=== PATIENT | female | born 1965 | race Caucasian/White ===

== ENCOUNTER → 2018-09-01 10:16 | Outpatient (CLI) | payer BC, SELFPAY ==
--- NOTE | 2018-09-01 10:24 | MM_ITS ---
MM Dig screening mamm BI w/CAD CAD Screening COMPARISON: Digital mammograms with CAD from [place], [place] 10/27/2015 and 04/25/2017 INDICATION: There has been a previous biopsy left breast for benign disease. TECHNIQUE: Standard CC and MLO images were obtained. R2 CAD reviewed. FINDINGS: Prominent diffuse somewhat heterogenic fibroglandular densities are seen throughout both breasts. There is a smoothly marginated benign-appearing nodular density deep within the right breast at approximately the 3 to 4:00 position. There is no suspicious lesion and there are no suspicious microcalcifications. IMPRESSION: Moderately dense parenchyma pattern with no suspicious lesion seen BI-RADS Category: 2 Benign Finding(s) RECOMMENDED FOLLOW-UP: 1YR - 1 YEAR FOLLOW-UP (A letter has been sent to the patient regarding results of the study.)
== END ==
PROVIDERS: PCP Family Medicine; Visit Provider Family Medicine
DX: Z12.31 Encounter for screening mammogram for malignant neoplasm of breast (principal); N60.19 Diffuse cystic mastopathy of unspecified breast
CPT/HCPCS: 77067

== ENCOUNTER → 2019-01-02 07:12 | Outpatient (CLI) | payer OTHER, SELFPAY ==
[2019-01-02 09:05] LABS: Free T4 (Free Thyroxine) 1.28 ng/dl (0.76-1.46)
== END ==
PROVIDERS: Visit Provider Family Medicine
DX: Z00.00 Encounter for general adult medical examination without abnormal findings (principal); E03.9 Hypothyroidism, unspecified
CPT/HCPCS: 36415; 84439

== ENCOUNTER → 2020-10-28 15:47 | Outpatient (CLI) | payer OTHER, SELFPAY ==
--- NOTE | 2020-10-28 15:50 | MM_ITS ---
PROCEDURE: MM DIG SCREENING MAMM BI W/CAD Digital Breast Tomosynthesis Included CLINICAL INDICATION: SCREENING There is no personal or family history of breast cancer. There has been a previous biopsy left breast for benign disease. . COMPARISON: MG DIG MAMMO BILAT SCREENING from 12/09/2010 MG MA MAMMO SCRN DIGITL BILAT from 01/14/2012 MG [facility] MM Dig screening mamm BI w/CAD from 09/01/2018 TECHNIQUE: Standard CC and MLO images and 3D Tomosynthesis was obtained. R2 CAD reviewed. FINDINGS: Moderate diffuse somewhat heterogenic fibroglandular densities are seen in the central portions of both breasts. There is a stable nodular density deep within the right breast inner quadrant which a notch like border in this likely is an intramammary node. There is no suspicious lesion and no suspicious microcalcifications. IMPRESSION: Moderate breast density with no suspicious lesions seen BI-RAD Category: 2 Benign Finding(s) FOLLOW-UP: 1YR 1 Year Follow-up (A letter has been sent to the patient regarding results of the study.) Dictated by: Dr. Matt Lawton MD 10/30/2020 09:31 Dr. Matt Lawton MD in [place] 10/30/2020 09:31
== END ==
PROVIDERS: PCP Family Medicine; Visit Provider Family Medicine
DX: Z12.31 Encounter for screening mammogram for malignant neoplasm of breast (principal); Z92.89 Personal history of other medical treatment
CPT/HCPCS: 77063; 77067

== ENCOUNTER 2021-06-03 09:00 | Emergency (ER) | payer OTHER, SELFPAY ==
[2021-06-03 09:05] VITALS: BP 136/91; PULSE 89; RESP 19; TEMP 37.1; O2SAT 100; BMI 24.0
--- NOTE | 2021-06-03 09:33 | HMH.EDUTC ---
[facility] [place] Clinical Impression: Sinusitis Qualifiers: Sinusitis location: unspecified location Chronicity: unspecified Qualified Code(s): J32.9 - Chronic sinusitis, unspecified Disposition: Home, Self-Care Condition on Discharge: Good Instructions: Sinusitis, DI for Sinusitis, Azithromycin Additional Instructions: *Monitor Temp, Over the counter Motrin or Tylenol as directed/as needed Tylenol every 4 hours and Motrin every 6 hours (as long as your family doctor has told you that you can take it) for fever or pain. and straight to ER if unable to lower temp less than 101.0 after medication given *Warm salt water gargles may help to soothe the throat *Throat Lozenges *Warm fluids like tea with honey may help to soothe the throat *Sleep elevated *Humidifier/Vaporizer Follow up IMMEDIATELY for new or worsening symptoms or no Noticeable improvement over the next 48-72 hours. 911 for difficulty breathing or swallowing You were tested for today for COVID19 your test result should be back in the next 24-48 hours, you was given a handout on how to log onto the [facility] Portal to see your COVID test results if you have issues logging on or cannot get your results you may call the [facility] You was given a handout with instructions for Self Quarantine and Self isolation for while you wait on test results and what to do if they are positive If you are positive the Health Dept will be contacting you also Make sure to take your Vitamins Vit. C Vit D and Zinc if you can take them Prescriptions: methylPREDNISolone [Medrol 4mg tab] 4 mg PO DIRECTED #21 tab Transmission Status: Pending to [facility] Benzonatate [Tessalon Perle 100mg Cap*] 100 mg PO TID PRN #30 cap PRN Reason: Cough Transmission Status: Pending to [email or web address] Azithromycin [Z-Blas 250mg Tab] 250 mg PO DIRECTED #6 tab Transmission Status: Pending to [facility] Referrals: Obdulia Sun [Primary Care Provider] - As needed Time of Disposition: 09:41 Medical Decision Making - Dwight Inquiry Pt receiving controlled substance: No Dwight was queried for this patient: No Vital Signs: 06/03/21 09:05 Temperature 98.8 F Temperature Source Oral Pulse Rate [Left Brachial] 89 Respiratory Rate 19 Blood Pressure [Left Arm] 136/91 H Blood Pressure Mean [Left Arm] 106 Blood Pressure Source [Left Arm] Automatic Cuff Blood Pressure Position [Left Arm] Sitting 02 Sat by Pulse Oximetry 100 Oxygen Delivery Method Room Air Orders (Tests/Meds): ORDERS Category Date Time Status Covid-19 Nasal PCR ([facility]) Routine Lab 06/03/21 09:30 Received [facility] HPI - General Stated complaint: sinus pressure, cough Time Seen by Provider: 06/03/21 09:33 Mode of Arrival: Ambulatory Source of Information: Patient Limitations: No Limitations Description of Symptoms (Recalled from Triage Doc. by RN): PATIENT C/O COUGH, HEADACHE, AND CONGESTION X 1 WEEK HEENT Symptoms (Recalled from RN notes): Yes Resp Symptoms (Recalled from RN notes): Yes Skin Symptoms (Recalled from RN notes): No MS Symptoms (Recalled from RN notes): No Functional Status (Recalled from RN notes): WNL - History of Present Illness Provider Complaint: Patient states that she has been having sinus pain and pressure along with cough and drainage in the back of her throat States that it has continued to get worse over the last week and today she was feeling worse States that she gets sinusitis and bronchitis about this time every year so she came in to get checked out - Related Data Home Medications Medication Instructions Recorded Confirmed levothyroxine 100 mcg tablet PO 09/09/19 09/09/19 Previous Rx's Medication Instructions Recorded uuxryeyfrmjdecm-krdgbblxkejspid-QE 10 ml PO Q4-6H PRN 7 Days #118 ml 09/09/19 2 mg-30 mg-10 mg/5 mL oral syrup Azithromycin [Z-Blas 250mg Tab] 250 mg PO DIRECTED #6 tab 06/03/21 Benzonatate [Tessalon Perle 100mg 100 mg PO
[2021-06-03 09:39] VITALS: BP 136/91; PULSE 89; RESP 19; TEMP 37.1; O2SAT 100
== END 2021-06-03 09:47 | disposition home or self-care (01) ==
PROVIDERS: Emergency Provider Nurse Practitioner; PCP Family Medicine
DX: U07.1 COVID-19 (principal); J32.9 Chronic sinusitis, unspecified
CPT/HCPCS: 99202; C9803; G0463; U0003; U0005

== ENCOUNTER → 2022-07-16 10:50 | Outpatient (CLI) | payer BC, SELFPAY ==
--- NOTE | 2022-07-16 10:54 | MM_ITS ---
PROCEDURE INFORMATION: Exam: MG Bilateral Screening 3D Mammography Exam date and time: 07/16/2022 10:51 AM Age: 57 years old Clinical indication: Screening mammogram. TECHNIQUE: Imaging protocol: Bilateral Screening tomosynthesis and 2D mammography including computer-aided detection (CAD) when performed. COMPARISON: 1. MG MM DIG SCREENING MAMM BI W/CAD 10/28/2020 3:52 PM 2. MG [facility] MM Dig screening mamm BI w/CAD 09/01/2018 10:41 AM 3. MG MA MAMMO SCRN DIGITL BILAT 01/14/2012 3:09 PM FINDINGS: MAMMOGRAPHY: Breast composition: The breast is heterogeneously dense, which may obscure small masses. Mass: None. Architectural distortion: No new or suspicious architectural distortion. Calcifications: No new or suspicious calcifications are present Asymmetric density: No new or suspicious asymmetric density is present Skin thickening: None. Axillary adenopathy: None. IMPRESSION: No mammographic evidence of malignancy. Recommend annual screening mammography unless otherwise clinically indicated. ASSESSMENT: BI-RADS category 1: Negative
== END ==
PROVIDERS: PCP Family Medicine; Visit Provider Family Medicine
DX: Z12.31 Encounter for screening mammogram for malignant neoplasm of breast (principal)
CPT/HCPCS: 77063; 77067

== ENCOUNTER 2024-03-20 18:02 | Emergency (ER) | payer OTHER, SELFPAY ==
[2024-03-20 18:10] VITALS: BP 156/100; PULSE 70; RESP 17; TEMP 36.8; O2SAT 97; BMI 27.6
--- NOTE | 2024-03-20 18:12 | ED_ITS ---
Discharge Plan Disposition Patient Disposition: Home, Self-Care Condition: Good Prescriptions Prescriptions: New hydroxyzine pamoate [Vistaril] 25 mg capsule 25 mg PO Q6H PRN (Reason: itching) Qty: 30 0RF methylprednisolone 4 mg Tablets,Dose Pack 4 mg PO DIRECTED 6 Days Qty: 21 0RF Rx Instructions: Take 1 pack as directed for 6 days No Action levothyroxine 100 mcg tablet 100 mcg PO DAILY Patient Comments: TAKE 1 TABLET BY MOUTH ONCE DAILY Referrals Follow up/Referrals: Avi Persaud MD [Primary Care Provider] - See instructions Activity Restrictions/Add. Instructions Additional Instructions/Restrictions: Try to identify and avoid contact with the offending substance. Don't start the oral steroids until tomorrow. The hydroxyzine (vistaril) will make you drowsy, so don't drive or operate heavy machinery after taking it. Don't take the vistaril with benedryl. These are similar medications and they will make you too drowsy together. Follow up with your regular doctor. GO TO THE ER FOR ANY WORSENING SYMPTOMS OR CONCERNS Clinical Impressions Clinical Impression: Allergic reaction Instructions Patient Instructions: DI for General Allergic Reactions, Methylprednisolone, Hydroxyzine, Methylprednisolone Injection Discharge ED Provider: Basil Solis [facility] General Stated complaint: rash Time Seen by Provider: 03/20/24 18:12 History of Present Illness Provider Complaint: She states that since earlier today she has had a rash on her body and extreme itching. She denies exposure to any known allergens. She denies any chest tightness, mouth swelling and throat swelling. Related Data Home Medications Medication Instructions Recorded Confirmed levothyroxine 100 mcg tablet 100 mcg PO DAILY 09/09/19 03/20/24 Previous Rx's Medication Instructions Recorded hydroxyzine pamoate 25 mg capsule 25 mg PO Q6H PRN itching #30 caps 03/20/24 (Vistaril) methylprednisolone 4 mg tablets in 4 mg PO DIRECTED 6 days #21 tabs 03/20/24 a dose pack Allergies Allergy/AdvReac Type Severity Reaction Status Date / Time No Known Allergies Allergy Verified 09/09/19 11:28 [facility] Disclaimer: The information contained in this section may have been updated after the p atient was seen, as this information can be updated by other users. Medical History (Updated 03/20/24 @ 18:38 by Basil Solis APRN) Thyroid disease Social History Smoking Status: Never smoker alcohol intake: never current occupational status: other Travel in the last 8 weeks: None ROS Obtained: Yes All systems reviewed & no additional complaints except as documented Constitutional Constitutional: Denies chills and Denies fever(s) Eyes Eyes: Denies eye discharge ENT Ears, Nose, Mouth, and Throat: Denies dizziness, Denies otalgia and Denies sore throat Cardiovascular Cardiovascular: Denies chest pain Respiratory Respiratory: Denies shortness of breath, Denies chest congestion, Denies cough, Denies stridor and Denies wheezing Gastrointestinal Gastrointestingal: Denies nausea or vomiting Musculoskeletal Musculoskeletal: Reports system reviewed and no additional complaints, except as documented and Denies arthralgias Integumentary/Breasts Skin/Breast: Reports as per HPI and Reports rash Neurologic Neurologic: Denies dizziness and Denies paresthesias Allergic/Immunologic Allergic/Immunologic: Denies wheezing Physical Exam General General appearance: alert and in no apparent distress Head Head exam: atraumatic, normocephalic and normal inspection Eye Eye exam: Present normal appearance, PERRL and EOMI ENT ENT exam: Present normal exam, normal oropharynx, mucous membranes moist, TM's normal bilaterally and normal external ear exam Neck Neck exam: Present normal inspection, full ROM and trachea midline; Absent meningismus or lymphadenopathy Chest Chest inspection: Present normal inspection and symmetric chest wall rise; Absent tenderness Respiratory Respiratory exam: Present normal lung sounds bilaterally; Absent respiratory distress Cardiovascular Cardiovascular exam: Present regular rate and normal rhythm; Absent JVD Abdominal Exam Abdominal exam: Present soft and normal bowel sounds; Absent distention, tenderness or guarding Extremities Exam Extremities exam: Present normal inspection, full ROM and normal capillary refill; Absent calf tenderness Back Exam Back exam: Present normal inspection; Absent tenderness Neurological Exam Neurological exam: Present alert and oriented X3 Psychiatric Psychiatric exam: Present normal affect and normal mood Skin Skin exam: Present rash Lymphatic Lymphatic Findings: no adenopathy Medical Decision Making Medical Records Medical records reviewed: No I reviewed the patient's medical records. Dwight Inquiry Pt receiving controlled substance: No
[2024-03-20] MEDS: METHYLPREDNISOLONE SOD SUCC 125MG VIAL 125 MG IM (18:35)
[2024-03-20 18:39] VITALS: BP 156/100; PULSE 70; RESP 17; TEMP 36.8; O2SAT 97
== END 2024-03-20 18:46 | disposition home or self-care (01) ==
PROVIDERS: Emergency Provider Nurse Practitioner Family; PCP Family Medicine
DX: T78.40XA Allergy, unspecified, initial encounter (principal)
CPT/HCPCS: 96372; 99212; 99214; G0463; J2919

== ENCOUNTER 2024-10-26 12:09 | Outpatient (CLI) | payer OTHER, SELFPAY ==
[2024-10-26 13:55] LABS: Alanine Aminotransferase 26 U/L (12-78); Albumin Level 4.6 g/dl (3.5-5.0); Albumin/Globulin Ratio 2.1 (1.1-1.8); Alkaline Phosphatase 67 U/L (38-126); Aspartate Amino Transferase 34 U/L (14-36); Blood Urea Nitrogen 15 mg/dl (7-17); Calcium 9.7 mg/dl (8.4-10.2); Carbon Dioxide 28 mmol/L (22.0-30.0); Chloride 103 mmol/L (98-107); Chol/HDL Ratio 2.3 (1-3.5); Cholesterol 191 mg/dl (140-200); Estimated Glomerular Filt Rate 86 ml/min (>60); GFR (African American) 104 ML/MIN (>60); Globulin 2.2 g/dL (1.3-3.2); Glucose 83 mg/dl (74-100); HDL Cholesterol 82 mg/dl (40-60); Sodium 135 mmol/L (136-145); Total Protein,Serum 6.8 g/dl (6.3-8.2); Triglycerides 112 mg/dl (30-150); VLDL Cholesterol 22 mg/dL (0-40)
[2024-10-26 13:57] LABS: Bilirubin,Total 0.1 mg/dl (0.2-1.3)
[2024-10-26 14:12] LABS: Free T4 (Free Thyroxine) 1.17 ng/dl (0.78-2.19)
[2024-10-26 14:29] LABS: Thyroid Stimulating Hormone 0.03 uIU/mL (0.465-4.68)
[2024-11-02 02:30] LABS: F026-IgE Pork 0.84 kU/L (Class II); F027-IgE Beef 1.94 kU/L (Class III); F088-IgE Lamb 0.37 kU/L (Class I); Immunoglobulin E, Total 22 IU/mL (6-495); O215-IgE Alpha-Gal 4.13 kU/L (Class IV)
== END 2024-10-26 23:59 | disposition home or self-care (01) ==
PROVIDERS: PCP Family Medicine; Visit Provider Family Medicine
DX: E03.9 Hypothyroidism, unspecified (principal); Z91.018 Allergy to other foods
CPT/HCPCS: 36415; 80053; 80061; 82785; 84439; 84443; 86003; 86008

== ENCOUNTER 2025-03-28 15:49 | Outpatient (CLI) | payer OTHER, SELFPAY ==
--- OUTSIDE RECORDS SUMMARY | 2025-03-28 15:52 | XMS_ITS | Encounter Summary ---
Author Organization Healthcare Address [address] [id number] Care Team Providers Care Hairspring Ii Inspector Name Role Phone Obdulia Sun MD Primary Care Provider [phone] Reason for Visit * Reason Comments Med Refill Encounter Details Date Type Department Care Team (Late st Contact Info) Description 05/28/2022 Refill [facility] [address] [place] [address] Obdulia Sun MD [address] [place] [address] Social History Tobacco Use Types Packs/Day Years Used Date Smoking Tobacco: Never Smokeless Tobacco: Never Alcohol Use Standard Drinks/Week Comments Yes 0 (1 standard drink = 0.6 oz pur e alcohol) PHQ-2 Answer Date Recorded Patient Health Questionnaire-2 Score 0 05/01/2021 Comments Unknown Sex and Gender Information Value Date Recorded Sex Assigned at Not on file Legal Sex Female 7:41 PM EDT Gender Identity Not on file Sexual Orientation Not on file documented as of this encounter Plan of Treatment Not on file documented as of this encounter Visit Diagnoses Not on filedocumented in this encounter Care Teams Hairspring Ii Inspector Relationship Specialty Start Date End Date Obdulia Sun MD [address] [place] [address] PCP - General 01/09/21 06/19/24 documented as of this encounter
--- OUTSIDE RECORDS SUMMARY | 2025-03-28 15:52 | XMS_ITS | Encounter Summary ---
Author Organization Healthcare Address [address] [place] [address] Care Team Providers Care Seaport Planning Manager Name Role Phone Obdulia Sun MD Primary Care Provider [phone] Reason for Visit * Reason Comments Med Refill Encounter Details Date Type Department Care Team (Late st Contact Info) Description 09/29/2022 Refill [facility] [address] [place] [address] Obdulia Sun MD [address] [place] [address] Social History Tobacco Use Types [...] on file documented as of this encounter Miscellaneous Notes * Telephone Encounter - Bárbara Jernigan - 09/29/2022 9:58 AM EST Spoke with pt she states that she will call back to make apt documented in this encounter Plan of Treatment Not on file documented as of this encounter Visit Diagnoses Not on filedocumented in this encounter Care Teams Seaport Planning Manager Relationship Specialty Start Date End Date Obdulia Sun MD [address] [place] [address] PCP - General 01/09/21 06/19/24 documented as of this encounter
--- OUTSIDE RECORDS SUMMARY | 2025-03-28 15:52 | XMS_ITS | Clinical Summary ---
Author Organization Healthcare Address [address] [id number] Care Team Providers Care Sample Box Maker Name Role Phone Unavailable Primary Care Provider Unavailabl e Allergies Active Allergy Reactions Criticality Noted Date Comments Ciprofloxacin Unknown - Patient st ates they do not know rxn details Low 11/22/2014 Medications polyethylene glycol (MiraLax) 17 GM/SCOOP powder MIX 1 CAPFUL (17GM) IN 8 OUNCES OF WATER, JUICE, OR TEA AND DRINK DAILY. 10/22/2020 Active Multiple Vitamin (multivitamin) tablet Take 1 tablet by mouth 1 (one) time each day. Active cyanocobalamin (cyanocobalamin ) 100 MCG tablet Take 100 mcg by mouth 1 (one) time each day. Active loratadine (Claritin) 10 MG tablet Take 10 mg by mouth 1 (one) time each day. Active cholecalciferol (cholecalcifero l) 10 MCG (400 UNIT) tablet Take 400 Units by mouth 1 (one) time each day. Active methylPREDNISol one (Medrol Dospak) 4 MG tablets Take as directed 21 tablet 03/23/2022 Active levothyroxine (Synthroid, Levoxyl) 100 MCG tablet Take 1 tablet (100 mcg total) by mouth 1 (one) time each day. NEED APPT FOR REFILLS 30 tablet 05/28/2022 Active Active Problems Problem Noted Date Diagnosed Date Hypothyroidism 09/24/2015 Menopausal symptoms 09/24/2015 Fibrocystic breast disease 11/23/2014 Immunizations Immunization Administration Dates Next Due PPD Skin Test (TB Skin Test) 03/23/2002,05/09/20 01 Social History Tobacco Use Types Packs/Day Years [...] on file Sexual Orientation Not on file Last Filed Vital Signs Vital Sign Reading Time Taken Comments Blood Pressure 112/78 05/01/2021 4:04 PM EDT Pulse 70 05/01/2021 4:04 PM EDT Temperature 37 C (98.6 F) 10/22/2020 9:02 AM EST Respiratory Rate 14 09/11/2019 10:1 1 AM EST Oxygen Saturation 98% 05/01/2021 4:04 PM EDT Inhaled Oxygen Concentration - - Weight 65.2 kg (143 lb 11.8 oz) 05/01/2021 4:04 PM EDT Height 162.6 cm (5' 4 ) 05/01/2021 4:04 PM EDT Body Mass Index 24.67 05/01/2021 4:04 PM EDT Plan of Treatment Health Maintenance Due Date Last Done Comments [facility]-Depression Screening 1967 [facility]-Infant/Child/Adol SDOH Screenings 1967 [facility]- SDOH Screenings 1985 [facility]-Adult SDOH Screenings 1985 [facility]-DTaP,Tdap,and Td Vaccine s (1 - Tdap) 1986 [facility]-Hepatitis B Vaccines (1 of 3 - 19+ 3-dose series) 1986 [facility]-Pap Smear 1988 [facility]-Cervical Cancer Screening 1997 [facility]-HPV/Cotest 1997 CT Colonography 2012 Colonoscopy 2012 FIT-DNA 2012 FIT 2012 FOBT 2012 Sigmoidoscopy 2012 [facility]-Colorectal Cancer Screening 2012 [facility]-Pneumococcal Vaccine: 50 + Years (1 of 1 - PCV) 2017 [facility]-Zoster Vaccines (1 of 2) 2017 [id number] Vaccine (1 - 2023- season) 2024 [facility]-Influenza Vaccine (#1) 2025 [facility]-Breast Cancer Screening Discontinued 06/29, 07/16/2022 HPV Vaccines Aged Out No longer eligi ble based on patient's age to complete this topic [facility]-HIB Vaccines Aged Out No longer e ligible based on patient's age to complete this topic [facility]-Hepatitis A Vaccines Aged Out No longer eligible based on patient's age to complete this topic [facility]-IPV Vaccines Aged Out No longer e ligible based on patient's age to complete this topic [facility]-Rotavirus Vaccines Aged Out No lo nger eligible based on patient's age to complete this topic Procedures Procedure Name Priority Date/Time Associated Diagnosis Comments MAMMOGRAPHY EXTERNAL RESULTS 07/16/2022 from Last 3 Months or Most Recently Relevant to Health Maintenance Results * MAMMOGRAPHY EXTERNAL RESULTS (07/16/2022) Anatomical Region Laterality Modality Mammography Narrative 07/16/2022 Ordered by an unspecified provider. us External Provider IMG BI PROCEDURES Final Result from Last 3 Months or Most Recently Relevant to Health Maintenance Insurance [employer]
--- NOTE | 2025-03-28 15:53 | MM_ITS ---
PROCEDURE INFORMATION: Exam: MG Bilateral Screening 3D Mammography Exam date and time: 03/28/2025 3:54 PM Age: 59 years old Clinical indication: Screening examination TECHNIQUE: Imaging protocol: Bilateral Screening tomosynthesis and 2D mammography including computer-aided detection (CAD) when performed. COMPARISON: 1. MG MM DIG SCREENING MAMM BI W/CAD 07/16/2022 10:51 AM 2. MG MM DIG SCREENING MAMM BI W/CAD 10/28/2020 3:52 PM FINDINGS: MAMMOGRAPHY: Breast composition: There are scattered areas of fibroglandular density. Mass: None. Architectural distortion: None. Calcifications: No suspicious calcifications. Asymmetric density: None. Skin thickening: None. Axillary adenopathy: None. IMPRESSION: No mammographic evidence of malignancy. Annual screening is recommended unless otherwise clinically indicated. ASSESSMENT: BI-RADS Category 1: Negative.
== END 2025-03-28 23:59 | disposition home or self-care (01) ==
LOC: RAD 15:50
PROVIDERS: PCP Family Medicine; Visit Provider Family Medicine
DX: Z12.31 Encounter for screening mammogram for malignant neoplasm of breast (principal); R92.323 Mammographic fibroglandular density, bilateral breasts
CPT/HCPCS: 77063; 77067

== ENCOUNTER 2025-07-18 06:31 | Day surgery (SDC) | payer OTHER, SELFPAY ==
--- NOTE | 2025-07-12 13:02 | EXP.HP ---
History of Present Illness *Admission Date: 07/18/25 *History of present illness: Mrs. Pacheco is a 60-year-old female who is here for initial screening colonoscopy. The patient does have a history of alpha gal. The examination is deemed medically necessary for screening colonoscopy. The patient has been seen, interviewed and examined prior to the procedure by both myself and the anesthesia provider. [facility] Disclaimer: The information contained in this section may have been updated after the patient was seen, as this information can be updated by other users. Medical History Alpha-gal syndrome Thyroid disease Surgical History History of hysterectomy H/O lumpectomy Family History Other No significant family history Social History (Updated 07/18/25 @ 07:40 by Adarsh Mathis CRNA) Smoking Status: Never smoker alcohol intake: never substance use type: denies use current occupational status: other Travel in the last 8 weeks?: Inside the [place] Have you lived/traveled outside US in past 30 days?: No Contact w/someone who lives/traveled outside US past 30 days?: No Exposure to someone with infectious disease in past 14 days?: No Do you have a fever (greater than 100.4 F or 38 C)?: No Have you tested positive for COVID-19?: No Exposed to someone with COVID-19 in past 14 days?: No Do you have a sore throat?: No Do you have a cough?: No Do you have any weakness?: No Do you have any diarrhea?: No Are you experiencing any unusual bleeding?: No Do you have any muscle aches/pain?: No Do you have any abdominal pain?: No Are you experiencing loss of taste or smell?: No Other Medical History Have you received the Pneumonia Vaccine: No Review of Systems Review of Systems Review of systems (narrative): Negative *Cardiovascular Comments: Negative *Gastrointestinal Comments: Negative *Genitourinary Comments: Negative *Musculoskeletal Comments: Negative *Neurologic Comments: Negative Meds Home Medications and Allergies Home Medications ?Medication ?Instructions ?Recorded ?Confirmed ?Type levothyroxine 100 mcg tablet 100 mcg PO DAILY 09/09/19 07/18/25 History hydroxyzine pamoate 25 mg capsule 25 mg PO Q6H PRN itching #30 caps 03/20/24 07/18/25 Rx (Vistaril) methylprednisolone 4 mg tablets in 4 mg PO DIRECTED 6 days #21 tabs 03/20/24 Rx a dose pack sodium,potassium,mag sulfates 17.5 See Rx Instructions PO .COMPLEX 07/05/25 Rx gram-3.13 gram-1.6 gram oral soln #354 mL (Suprep Bowel Prep Kit) ascorbic acid (vitamin C) 100 mg 100 mg PO DAILY 07/16/25 07/18/25 History tablet (Vitamin C) biotin 5 mg tablet 5 mg PO DAILY 07/16/25 07/18/25 History ferrous sulfate 325 mg (65 mg 325 mg PO DAILY 07/16/25 07/18/25 History iron) capsule,extended release multivitamin 1 tab PO DAILY 07/16/25 07/18/25 History rimegepant 75 mg disintegrating 75 mg PO NEEDED PRN Headache 07/16/25 07/18/25 History tablet (Nurtec ODT) New Prescriptions to Start Prescriptions: Allergies Allergy/AdvReac Type Severity Reaction Status Date / Time No Known Allergies Allergy Verified 09/09/19 11:28 Exam *Routine HEENT Exam Head: Present normocephalic Eye: Present EOMI and PERRL ENT: Present mucous membranes moist *Routine Neck Exam Neck: Present supple *Routine Respiratory Exam Respiratory: Present CTA bilaterally *Routine Cardiovascular Exam Cardiovascular: Present RRR *Routine Abdominal Exam Abdominal: Present soft and normoactive bowel sounds; Absent tenderness *Routine Rectal Exam Rectal:: deferred *Routine Genitalia Exam Genitalia:: deferred *Routine Extremities Exam Extremities: Absent cyanosis, clubbing or edema *Routine Skin Exam Skin: Present warm; Absent rash *Routine Neurological Exam Neurological: Present alert and oriented X3 Assessment and Plan *Assessment and plan (1) Screening for colon cancer: Status: Acute Category: Medical Code(s): Z12.11 - Encounter for screening for malignant neoplasm of colon Plan A/P: 1. Screening for colon cancer is the preprocedural diagnosis. The patient will be anesthetized/sedated using MAC sedation. The patient has been seen and examined. Cardiac and lung assessment prior to the examination is stable. Proceed with planned screening colonoscopy.
[2025-07-16 13:26] VITALS: BMI 26.2
--- NOTE | 2025-07-18 06:53 | HMH.PROCNOTE ---
[facility] Procedure Note Date: 07/18/25 Time: 08:27 Procedure Note:: Colonoscopy Procedure Report: Colonoscopy with cold snare polypectomy Endoscopist: Rashad Rushing II, MD Referring physician: Avi Persaud MD Date of Procedure: July 18, 2025 Equipment: Olympus [id number] adult colonoscope Sedation: MAC sedation Indication: Mrs. Pacheco is a 60-year-old female who is here for initial screening colonoscopy. The patient does have some chronic constipation for which she eats prunes or prune juice. The patient reports no abdominal pain, weight loss, change in her bowel habits or rectal bleeding. She reports no family history of colon cancer but does not know her paternal side. The patient does have a history of alpha gal syndrome and her levels have remained elevated. The examination is deemed medically necessary for screening colonoscopy. Procedure: Prior to the procedure, a history and physical exam was performed, and patient's medications and allergies were reviewed. The risks, benefits and alternatives of the sedation and procedure were discussed with the patient. All questions were answered and informed consent was obtained. The patient was brought to the procedure room. Patient identification and proposed procedure were verified by the physician and the nurse. The patient was placed in a left lateral decubitus position and the scope was passed under direct vision. Throughout the procedure, the patient's blood pressure, pulse, and oxygen saturations were monitored continuously. The colonoscopy was accomplished without difficulty. The patient tolerated the procedure well. Findings: On digital rectal examination there was normal rectal tone. There were no external hemorrhoids. The colonoscope was introduced through the anal canal to the rectum and advanced to the cecum. The ileocecal valve and appendiceal orifice were identified. The scope was advanced a short distance into the ileum which appeared grossly normal. The scope was then withdrawn into the colon. There were 2 colon polyps (ascending x 1 (6 mm with mucus cap) and descending x 1 (8 mm)). Both of these were removed via cold snare polypectomy. The remaining cecum, ascending, transverse, descending, sigmoid and rectum were grossly normal. There were no other mucosal abnormalities identified. Upon retroflexion within the rectum there were grade 2 internal hemorrhoids. The preparation was excellent throughout with [place] Preparation Score of 9. The cecal time was 12 minutes. Impression: 1. Colonic polyps x 2 Plan: I will follow-up the polyp histology and recommend repeat screening/surveillance colonoscopy again in 5 to 7 years based upon the pathology.
[2025-07-18 07:18] VITALS: BP 140/99; PULSE 77; RESP 16; TEMP 36.4; O2SAT 99
[2025-07-18] MEDS: LACTATED RINGERS 1000ML 1,000 ML 50 ML IV (07:23)
--- NOTE | 2025-07-18 07:39 | EXP.ANES.CKL ---
[facility] Disclaimer: The information contained in this section may have been updated after the patient was seen, as this information can be updated by other users. Medical History Alpha-gal syndrome Thyroid disease Surgical History History of hysterectomy H/O lumpectomy Family History Other No significant family history Social History Smoking Status: Never smoker alcohol intake: never substance use type: denies use current occupational status: other Travel in the last 8 weeks?: Inside the [place] [facility] Anesthesia Checklist Patient Identification Patient Identification: Arm Band Structural Data Admitted From: Home Planned Operative Procedure/s: Colonoscopy Consent for Planned Operative Procedure(s) Verified: Yes Verified Documents: Surgical Consent and History and Physical NPO Status Verified Time NPO: 00:00 Additional verifications Anesthesia Reactions: No Airway Assessment Mallampati Score:: Class II C-Spine Mobility Assessed: Yes TMJ Mobility Assessed: Yes Dentition: Good Dentition Neurological Assessment Level of Consciousness: Awake, Alert and Appropriate Anesthesia Plan Anesthesia Risk discussed: Yes Anesthesia Plan: Verified ASA Class: II Anesthesia Type: MAC
[2025-07-18 08:28] VITALS: BP 102/67; PULSE 86; RESP 18; TEMP 36.2; O2SAT 97
[2025-07-18 08:43] VITALS: BP 94/65; PULSE 69; RESP 18; TEMP 36.2; O2SAT 100
[2025-07-18 08:58] VITALS: BP 103/66; PULSE 63; RESP 18; TEMP 36.2; O2SAT 100
== END 2025-07-18 09:22 | disposition home or self-care (01) ==
PROVIDERS: PCP Family Medicine; Visit Provider Internal Medicine Gastroenterology
PROC: 0DJD8ZZ Inspection of Lower Intestinal Tract, Via Natural or Artificial Opening Endoscopic (ICD-10-PCS; CPT 45378; principal; 2025-07-18 08:00)
DX: Z12.11 Encounter for screening for malignant neoplasm of colon (principal); D12.4 Benign neoplasm of descending colon; D12.2 Benign neoplasm of ascending colon; K64.1 Second degree hemorrhoids; K59.00 Constipation, unspecified
CPT/HCPCS: 45385; J2003; J2704; J7120